=== PATIENT | male | born 1985 | race Caucasian/White ===

== ENCOUNTER → 2021-02-14 | Day surgery (SDC) | payer MEDICARE ==
[~2021-02-14] VITALS: Ht 182.9 cm; Wt 143.1 kg
[~2021-02-14] MED LIST: ACETAMINOPHEN325 MG PO; DICLOFENAC SOD100 G1 TOP; LISINOPRIL-HCT1 EACH PO; MELOXICAM15 MG PO; METOPROLOL TART50 MG PO; NEURONTIN300 MG PO; NORCO 5-325 TA1 EACH PO; OXYCODON-ACETA1 EAC1 PO; PERCOCET 7.5/321 TAB PO; TRAMADOL HCL50 MG PO
[2021-02-14 07:23] LABS: BUN/CREAT RATIO (CALC) 16.2 RATIO; CREATININE 0.8 mg/dL (0.67-1.17); POTASSIUM 3.8 mmol/L (3.5-5.1)
== END | disposition home or self-care (01) ==
LOC: FAS 06:26
PROVIDERS: Anesthesiology
DX: M54.16 Radiculopathy, lumbar region (principal); M48.061 Spinal stenosis, lumbar region without neurogenic claudication; E66.9 Obesity, unspecified; F11.90 Opioid use, unspecified, uncomplicated; I10 Essential (primary) hypertension
CPT/HCPCS: 36415; 80048; 93005; C1778; C1787; C1820; J0690; J1885; J2001; J2704; J3010; J7120